=== PATIENT | male | born 1985 | race Caucasian/White ===

== ENCOUNTER 2017-12-15 07:42 | Inpatient (IN) | payer OTHER ==
[~2017-12-15] VITALS: Ht 179.1 cm; Wt 70.3 kg
[2017-12-15] MEDS ORDERED: LOPERAMIDE HCL 2 MG CAPSULE PO PRN ×2 (14:00)
[2017-12-15] MEDS ORDERED: MIRALAX 17 GM POWD.PACK PO PRN (14:00)
[2017-12-15] MEDS ORDERED: ONDANSETRON ODT 4 MG TAB.RAPDIS SL PRN (14:00)
[2017-12-15] MEDS ORDERED: DICYCLOMINE HCL 20 MG TABLET PO PRN (14:00)
[2017-12-15] MEDS ORDERED: LORAZEPAM 2 MG/1 ML VIAL IM PRN (14:00)
[2017-12-15] MEDS ORDERED: NICOTINE 14 MG/24HR PATCH TD PRN (14:00)
[2017-12-15] MEDS ORDERED: ONDANSETRON 4 MG/2 ML VIAL IM PRN (14:00)
[2017-12-15] MEDS ORDERED: THIAMINE HCL 200 MG/2 ML VIAL IM ONE (15:00)
[2017-12-15 15:42] LABS: BASOPHILS # (AUTO) 0.1 K/uL (0.0-8.0); BASOPHILS % (AUTO) 1.2 % (0.0-2.0); EOSINOPHILS # (AUTO) 0.1 K/uL (0.0-0.7); EOSINOPHILS % (AUTO) 0.6 % (0.0-7.0); HEMATOCRIT 46.7 % (36.7-47.1); HEMOGLOBIN 15.7 g/dL (12.5-16.3); LYMPHOCYTES # (AUTO) 1.6 K/uL (20.0-40.0); LYMPHOCYTES % (AUTO) 16.8 % (20.5-51.5); MEAN CORPUSCULAR HEMOGLOBIN 28.5 uug (23.8-33.4); MEAN CORPUSCULAR HGB CONC 34 g/dL (32.5-36.3); MEAN CORPUSCULAR VOLUME 84.6 fL (73.0-96.2); MONOCYTES # (AUTO) 0.6 K/uL (2.0-10.0); MONOCYTES % (AUTO) 6.5 % (0.0-11.0); NEUTROPHILS % (AUTO) 74.9 % (38.5-71.5); PLATELET COUNT (AUTO) 250 K/uL (152-348); RED BLOOD CELL COUNT(AUTO) 5.52 MIL/uL (4.06-5.63); WHITE BLOOD COUNT (AUTO) 9.3 K/uL (3.6-10.2)
[2017-12-15 15:45] LABS: ALANINE AMINOTRANSFERASE 65 U/L (16-63); ALKALINE PHOSPHATASE 122 U/L (50-136); AMYLASE 84 U/L (25-115); ASPARTATE AMINOTRANSFERASE 43 U/L (15-37); BILIRUBIN,TOTAL 0.9 mg/dL (0.2-1.0); CARBON DIOXIDE 25 mmol/L (21-32); CHLORIDE 98 mmol/L (98-107); CREATININE 1.3 mg/dL (0.6-1.3); GLUCOSE 137 mg/dL (74-106); LIPASE 174 U/L (73-393); MAGNESIUM 2.1 mg/dL (1.8-2.4); POTASSIUM 4.1 mmol/L (3.5-5.1); TOTAL PROTEIN, SERUM 8.5 g/dL (6.4-8.2); UREA NITROGEN, BLOOD 16 mg/dL (7-18)
[2017-12-15 15:49] LABS: ETHANOL < 3 MG/DL (0-0)
[2017-12-15 15:50] LABS: *AMPHETAMINE, URINE NEGATIVE (NEGATIVE); *BARBITURATE, URINE NEGATIVE (NEGATIVE); *CANNABINOID, URINE NEGATIVE (NEGATIVE); *COCCAINE, URINE NEGATIVE (NEGATIVE); *OPIATE, URINE NEGATIVE (NEGATIVE); *PHENCYCLIDINE SCREEN,URINE NEGATIVE (NEGATIVE)
[2017-12-15] MEDS ORDERED: SILD100T PO (15:51)
[2017-12-15] MEDS: CLONIDINE HCL 0.1 MG TABLET PO PRN (16:19)
[2017-12-15] MEDS: LORAZEPAM 1 MG TABLET PO SCH ×2 (16:19→20:30)
[2017-12-15 16:30] VITALS: BP 146/96
[2017-12-15] MEDS: NICOTINE POLACRILEX 4 MG GUM-PK OF TEN BC PRN ×2 (17:20→20:30)
[2017-12-15] MEDS: LORAZEPAM 1 MG TABLET PO PRN (17:49)
[2017-12-15 20:00] VITALS: BP 132/75
[2017-12-15] MEDS: IBUPROFEN 400 MG TABLET PO PRN (20:34)
[2017-12-15] MEDS: diphenhydrAMINE 50 MG CAPSULE PO PRN (21:49)
[2017-12-16] VITALS: BP 100/58
[2017-12-16] MEDS: MAG HYDROX/AL HYDROX/SIMETH 30 ML LIQUID UDC PO PRN ×2 (02:39→23:23)
[2017-12-16] MEDS: ACETAMINOPHEN 325 MG TABLET PO PRN (02:42)
[2017-12-16] MEDS: LORAZEPAM 1 MG TABLET PO PRN ×3 (03:16→22:23)
[2017-12-16 03:20] VITALS: BP 139/96
[2017-12-16] MEDS: NICOTINE POLACRILEX 4 MG GUM-PK OF TEN BC PRN ×3 (03:29→22:30)
[2017-12-16 08:15] VITALS: BP 133/94
[2017-12-16] MEDS: LORAZEPAM 1 MG TABLET PO SCH ×3 (08:18→20:11)
[2017-12-16] MEDS: THIAMINE HCL 100 MG TABLET PO SCH (08:18)
[2017-12-16] MEDS: IBUPROFEN 400 MG TABLET PO PRN (08:18)
[2017-12-16] MEDS: MULTIVITAMINS,THERAPEUTIC TABLET PO SCH (08:18)
[2017-12-16] MEDS: FOLIC ACID 1 MG TABLET PO SCH (08:18)
[2017-12-16] MEDS ORDERED: TUBERCULIN,PURIF.PROT.DERIV. 5 TU/0.1 ML TEST ID ONE (09:00)
[2017-12-16 12:09] VITALS: BP 131/88
[2017-12-16] MEDS ORDERED: GABAPENTIN 300 MG CAPSULE PO SCH (13:00)
[2017-12-16 13:17] LABS: HEPATITIS B SURFACE AG Negative (Negative)
[2017-12-16 16:42] VITALS: BP 143/79
[2017-12-16 20:00] VITALS: BP 147/97
[2017-12-16] MEDS: GABAPENTIN 300 MG CAPSULE PO SCH (20:11)
[2017-12-16] MEDS ORDERED: PRAZOSIN HCL 1 MG CAPSULE PO SCH (21:00)
[2017-12-16] MEDS: diphenhydrAMINE 50 MG CAPSULE PO PRN (22:23)
[2017-12-17] VITALS: BP 138/76
[2017-12-17] MEDS: IBUPROFEN 400 MG TABLET PO PRN (00:56)
[2017-12-17] MEDS: LORAZEPAM 1 MG TABLET PO PRN ×2 (02:29→04:55)
[2017-12-17 04:00] VITALS: BP 128/95
[2017-12-17] MEDS: MAG HYDROX/AL HYDROX/SIMETH 30 ML LIQUID UDC PO PRN (04:55)
[2017-12-17] MEDS: NICOTINE POLACRILEX 4 MG GUM-PK OF TEN BC PRN ×2 (05:34→18:45)
[2017-12-17 08:49] VITALS: BP 113/79
[2017-12-17] MEDS: THIAMINE HCL 100 MG TABLET PO SCH (08:51)
[2017-12-17] MEDS: GABAPENTIN 300 MG CAPSULE PO SCH ×3 (08:51→20:52)
[2017-12-17] MEDS: MULTIVITAMINS,THERAPEUTIC TABLET PO SCH (08:51)
[2017-12-17] MEDS: FOLIC ACID 1 MG TABLET PO SCH (08:51)
[2017-12-17] MEDS ORDERED: PNEUMOCOCCAL 23-VAL P-SAC VAC 0.5 ML VIAL IM ONE (09:00)
[2017-12-17] MEDS ORDERED: INFLUENZA VACCINE 2017-2018 0.5 ML DISP.SYRIN IM ONE (09:00)
[2017-12-17] MEDS ORDERED: LORAZEPAM 1 MG TABLET PO SCH ×2 (09:00→21:00)
[2017-12-17] MEDS ORDERED: CLONIDINE HCL 0.1 MG TABLET PO SCH (12:00)
[2017-12-17] MEDS: LORAZEPAM 1 MG TABLET PO SCH ×2 (12:07→17:15)
[2017-12-17 12:08] VITALS: BP 153/100
[2017-12-17 16:58] VITALS: BP 144/92
[2017-12-17 20:00] VITALS: BP 137/98
[2017-12-17] MEDS: CLONIDINE HCL 0.1 MG TABLET PO SCH (20:52)
[2017-12-17] MEDS ORDERED: TRAZODONE 100 MG TABLET PO SCH (21:00)
[2017-12-17] MEDS ORDERED: TRAZODONE 50 MG TABLET PO PRN (21:00)
[2017-12-17] MEDS: CLONIDINE HCL 0.1 MG TABLET PO PRN (22:29)
[2017-12-17] MEDS: diphenhydrAMINE 50 MG CAPSULE PO PRN (22:30)
[2017-12-18 04:00] VITALS: BP 138/86
[2017-12-18] MEDS: CLONIDINE HCL 0.1 MG TABLET PO PRN ×2 (05:54→12:58)
[2017-12-18 08:00] VITALS: BP 107/74
[2017-12-18] MEDS: GABAPENTIN 300 MG CAPSULE PO SCH ×2 (08:43→14:17)
[2017-12-18] MEDS: MULTIVITAMINS,THERAPEUTIC TABLET PO SCH (08:43)
[2017-12-18] MEDS: FOLIC ACID 1 MG TABLET PO SCH (08:43)
[2017-12-18] MEDS: FAMOTIDINE 20 MG TABLET PO SCH (08:43)
[2017-12-18] MEDS: THIAMINE HCL 100 MG TABLET PO SCH (08:43)
[2017-12-18] MEDS ORDERED: LORAZEPAM 1 MG TABLET PO SCH ×3 (09:00→21:00)
[2017-12-18] MEDS: NICOTINE POLACRILEX 4 MG GUM-PK OF TEN BC PRN (10:02)
[2017-12-18 12:00] VITALS: BP 132/85
[2017-12-18 16:00] VITALS: BP 129/88
[2017-12-18 20:00] VITALS: BP 137/93
[2017-12-18] MEDS ORDERED: GABAPENTIN 300 MG CAPSULE PO SCH (21:00)
[2017-12-18] MEDS: QUETIAPINE FUMARATE 25 MG TABLET PO SCH (21:33)
[2017-12-18] MEDS: CLONIDINE HCL 0.1 MG TABLET PO SCH (21:33)
[2017-12-19] VITALS: BP 117/75
[2017-12-19] MEDS: NICOTINE POLACRILEX 4 MG GUM-PK OF TEN BC PRN ×5 (01:36→21:39)
[2017-12-19 08:00] VITALS: BP 119/82
[2017-12-19] MEDS: GABAPENTIN 300 MG CAPSULE PO SCH ×3 (08:38→20:53)
[2017-12-19] MEDS: FAMOTIDINE 20 MG TABLET PO SCH (08:38)
[2017-12-19] MEDS: LORAZEPAM 1 MG TABLET PO SCH ×2 (08:38→20:52)
[2017-12-19] MEDS: MULTIVITAMINS,THERAPEUTIC TABLET PO SCH (08:38)
[2017-12-19] MEDS: FOLIC ACID 1 MG TABLET PO SCH (08:38)
[2017-12-19] MEDS: THIAMINE HCL 100 MG TABLET PO SCH (08:38)
[2017-12-19] MEDS ORDERED: LORAZEPAM 1 MG TABLET PO ONE (10:45)
[2017-12-19 12:00] VITALS: BP 147/96
[2017-12-19] MEDS: CLONIDINE HCL 0.1 MG TABLET PO PRN (12:28)
[2017-12-19 16:00] VITALS: BP 131/87
[2017-12-19 20:00] VITALS: BP 147/82
[2017-12-19] MEDS: QUETIAPINE FUMARATE 25 MG TABLET PO SCH (20:52)
[2017-12-19] MEDS: CLONIDINE HCL 0.1 MG TABLET PO SCH (20:53)
[2017-12-20] VITALS: BP 104/70
[2017-12-20] MEDS: CLONIDINE HCL 0.1 MG TABLET PO PRN (02:00)
[2017-12-20] MEDS: HYDROXYZINE PAMOATE 25 MG CAPSULE PO PRN (02:00)
[2017-12-20 04:00] VITALS: BP 105/66
[2017-12-20 08:00] VITALS: BP 129/88
[2017-12-20] MEDS: MULTIVITAMINS,THERAPEUTIC TABLET PO SCH (08:32)
[2017-12-20] MEDS: GABAPENTIN 300 MG CAPSULE PO SCH ×3 (08:33→20:21)
[2017-12-20] MEDS: CLONIDINE HCL 0.1 MG TABLET PO SCH ×2 (08:33→20:21)
[2017-12-20] MEDS: FOLIC ACID 1 MG TABLET PO SCH (08:33)
[2017-12-20] MEDS: FAMOTIDINE 20 MG TABLET PO SCH (08:33)
[2017-12-20] MEDS: THIAMINE HCL 100 MG TABLET PO SCH (08:33)
[2017-12-20] MEDS ORDERED: LORAZEPAM 1 MG TABLET PO SCH (09:00)
[2017-12-20] MEDS: NICOTINE POLACRILEX 4 MG GUM-PK OF TEN BC PRN ×2 (10:59→15:24)
[2017-12-20 12:00] VITALS: BP 131/90
[2017-12-20 16:00] VITALS: BP 136/93
[2017-12-20] MEDS ORDERED: GABA-534 PO (19:36)
[2017-12-20] MEDS ORDERED: FAMO20TA8 PO (19:36)
[2017-12-20] MEDS ORDERED: CLON0.1T14 PO (19:36)
[2017-12-20] MEDS ORDERED: HYDR-3895 PO (19:36)
[2017-12-20] MEDS ORDERED: QUET25TA PO (19:36)
[2017-12-20] MEDS ORDERED: DICY20TA28 PO (19:36)
[2017-12-20] MEDS ORDERED: DIPH50CA37 PO (19:36)
[2017-12-20 20:00] VITALS: BP 142/100
[2017-12-20] MEDS: QUETIAPINE FUMARATE 25 MG TABLET PO SCH (20:21)
[2017-12-21] VITALS: BP 139/88
[2017-12-21] MEDS: NICOTINE POLACRILEX 4 MG GUM-PK OF TEN BC PRN ×3 (01:47→10:56)
[2017-12-21 04:00] VITALS: BP 130/81
[2017-12-21] MEDS: IBUPROFEN 400 MG TABLET PO PRN (05:14)
[2017-12-21 08:00] VITALS: BP 130/90
[2017-12-21] MEDS: ACETAMINOPHEN 325 MG TABLET PO PRN (08:21)
[2017-12-21] MEDS: GABAPENTIN 300 MG CAPSULE PO SCH (08:21)
[2017-12-21 08:22] VITALS: BP 131/93
[2017-12-21] MEDS: HYDROXYZINE PAMOATE 25 MG CAPSULE PO PRN (08:22)
[2017-12-21] MEDS: THIAMINE HCL 100 MG TABLET PO SCH (08:22)
[2017-12-21] MEDS: FAMOTIDINE 20 MG TABLET PO SCH (08:22)
[2017-12-21] MEDS: FOLIC ACID 1 MG TABLET PO SCH (08:22)
[2017-12-21] MEDS: CLONIDINE HCL 0.1 MG TABLET PO SCH (08:22)
[2017-12-21] MEDS: MULTIVITAMINS,THERAPEUTIC TABLET PO SCH (08:22)
== END 2017-12-21 11:10 | disposition home or self-care (01) | DRG 895 ==
LOC: SRC 12:56
PROVIDERS: ADMIT Internal Medicine; ATTEND Internal Medicine
PROC: HZ2ZZZZ Detoxification Services for Substance Abuse Treatment (ICD-10-PCS; principal; 2017-12-15)
PROC: HZ41ZZZ Group Counseling for Substance Abuse Treatment, Behavioral (ICD-10-PCS; 2017-12-16)
PROC: HZ31ZZZ Individual Counseling for Substance Abuse Treatment, Behavioral (ICD-10-PCS; 2017-12-18)
DX: F10.230 Alcohol dependence with withdrawal, uncomplicated (principal); Z86.74 Personal history of sudden cardiac arrest; I15.9 Secondary hypertension, unspecified; K70.10 Alcoholic hepatitis without ascites; F17.210 Nicotine dependence, cigarettes, uncomplicated; Y90.0 Blood alcohol level of less than 20 mg/100 ml; Z91.89 Other specified personal risk factors, not elsewhere classified; G47.33 Obstructive sleep apnea (adult) (pediatric); F12.10 Cannabis abuse, uncomplicated; F41.9 Anxiety disorder, unspecified; Z81.1 Family history of alcohol abuse and dependence; Z83.3 Family history of diabetes mellitus; E11.9 Type 2 diabetes mellitus without complications; F32.9 Major depressive disorder, single episode, unspecified; F13.10 Sedative, hypnotic or anxiolytic abuse, uncomplicated; G47.50 Parasomnia, unspecified
CPT/HCPCS: 36415; 70030-TC; 80307; 80346; 83690; 83735; 85025; 86580; 86592; 86705; 86803; 87340; 87806; 90686; 90732; G0480; J3411; Q0163

== ENCOUNTER 2018-09-07 09:29 | Inpatient (IN) | payer OTHER ==
[~2018-09-07] VITALS: Ht 177.8 cm; Wt 70.3 kg
[~2018-09-07 09:29] MED LIST: CLON0.1T14 PO; DICY20TA28 PO; DIPH50CA37 PO; FAMO20TA8 PO; GABA-534 PO; HYDR-3895 PO; QUET25TA PO
--- NOTE | 2018-09-07 11:06 | NUR ---
ADMISSION Patient arrived on the unit at 1106 intoxicated, oriented to unit and to room, education regarding call light use provided with good verbal understanding. Patients BP: 132/90 hr: 122 rr: 18 t: 97.8 pulse ox: 99% room air. Patient appears intoxicated, has slurred speech and breath smells of alcohol. Patient appears disheveled. Noted irritable, angry and anxious. Noted with labile mood and anxious affect. Patient is fidgety and defensive. Noted guarded and angry. No withdrawal symptoms noted as patient last consumed 180ml of vodka at 0900 on 09/07/2018. Patient reports he relapsed 5 days ago. Was sober for 10-12 months prior to relapse. Patient admitted to [facility], with admitting Dx: Etoh Withdrawal. SUBSTANCE USE/HISTORY 1.Etoh- 375 ml of vodka, along with 12 (12oz) cans of [employer]ors light beers, daily for 5 days. Last drink: 09/07/2018 at 0900. Reports began drinking alcohol at the age of 15-16 years old. Relapsed 5 days ago, was sober for 10-12 months prior to relapse. Typical withdrawal include: " vomiting, nausea, feelings sick, sweats, tremors, and headaches". CONSEQUENCES OF SUBSTANCE ABUSE: Patient denies any history of seizure, denies any withdrawal induced delirium, and denies withdrawal induced cardiac complications, at time of assessment, but as previous MD notes, patient was at [facility] in December 2017, as per MD History & Physical completed by Dr. Alejandro Puri at that time, MD reported, The patient reports a history of withdrawal-induced delirium and withdraw-induced cardiac arrest leading to aspiration and requiring cardiopulmonary resuscitation, He also reports a history of accidental intoxication induced overdoses. Patient does report positive history of blackouts, reporting he is told by friends and family of doing things and patient cannot recall also verbalized I lose things, I send out text messages and make phone calls and have conversations with people, and in the morning I do not recall doing that MEDICAL/PSYCHIATRIC CONDITIONS: Patient reports being diagnosed with diabetes type 2, 7 or 8 years ago, denies taking any medications for diabetes. Also as per previous admission on December 2017 Dr. Alejandro Puri, reports past medical history of: Obstructive sleep apnea, History of alcohol induced pancreatitis, Anxiety disorder, unspecified, Depressive disorder, unspecified (previously on oral antidepressant; not at present), and Chronic tobacco use, with past surgical history of:. Uvulopalatopharyngoplasty and Dental/Oral surgery, unspecified Patient unable to provide name of primary care physician. Denies any involuntary psych hospitalization (5150) Denies any history of SI/HI. TREATMENT HISTORY Patient reports has been to about seven different treatment centers, but is unable to recall the names of them at this time. Was at [facility] in December 2017. MOTIVATION Patient verbalized, I began drinking in the very beginning because its what the adults did, and now I drink to lighten up, I was able to drink heavily for a very long time and stopping without a problem, but during stressful times the alcohol became a problem and it was difficult to stop reports he decided to come into treatment today, because, I decided to get sober today, because I want to live, because I cant keep doing this to myself, I need to live Reports, When I try to stop on my own I feel very sick and end up having very bad cravings, so I get drunk again so I dont have to feel sick Reports triggers include, Anything in life that is difficult or stressful I always turn to alcohol, and then find it difficult to stop drinking, I dont know how to stop Verbalized support system is, My support system is my kids and my family Patient reports alcohol has impacted his life in a negative way, by: drinking has affected my life in a bad way because, I cant drive, I continue going to rehabs over and over again, it has affected my relationship with my six children, and Im currently with my second , which it has also taken a bad impact on our relationship. I am unhappy with my alcoholism, the fact that I hate feeling sad, and I just want to drown that feeling by drinking alcohol Patient seen and examined by Dr. Khan, psychiatrist was notified of new admission. Will continue to monitor patient closely. Fall and seizure precautions are in place. Safety measures in place. Call light with in reach, will continue to monitor.
[2018-09-07 12:11] VITALS: BP 132/90
[2018-09-07 14:19] LABS: *AMPHETAMINE, URINE NEGATIVE (NEGATIVE); *BARBITURATE, URINE NEGATIVE (NEGATIVE); *CANNABINOID, URINE POSITIVE (NEGATIVE); *COCCAINE, URINE NEGATIVE (NEGATIVE); *OPIATE, URINE NEGATIVE (NEGATIVE); *PHENCYCLIDINE SCREEN,URINE NEGATIVE (NEGATIVE)
--- NOTE | 2018-09-07 14:23 | NUR ---
UDS + CANNABINOIDS Urine drug screen positive for cannabinoids, as per patient he last used approximately 8 days ago, and used very small amount, patient unable to report what the amount was, reports he smokes marijuana on/off.
[2018-09-07] MEDS ORDERED: LORAZEPAM 1 MG TABLET PO PRN (14:30)
[2018-09-07] MEDS ORDERED: ONDANSETRON 4 MG/2 ML VIAL IM PRN (14:30)
[2018-09-07] MEDS ORDERED: ONDANSETRON ODT 4 MG TAB.RAPDIS SL PRN (14:30)
[2018-09-07] MEDS ORDERED: THIAMINE HCL 200 MG/2 ML VIAL IM ONE (14:30)
[2018-09-07] MEDS ORDERED: IBUPROFEN 600 MG TABLET PO PRN (14:30)
[2018-09-07] MEDS ORDERED: LORAZEPAM 2 MG/1 ML VIAL IM PRN (14:30)
[2018-09-07] MEDS ORDERED: LOPERAMIDE HCL 2 MG CAPSULE PO PRN ×2 (14:30)
[2018-09-07] MEDS ORDERED: 5 DAY TAPER OF LORAZEPAM -SERENITY PROTOCOL PO PRN (14:30)
[2018-09-07] MEDS: LORAZEPAM 1 MG TABLET PO SCH ×3 (14:46→20:36)
[2018-09-07 14:47] LABS: EOSINOPHILS % (AUTO) 0.4 % (0.0-7.0); MONOCYTES # (AUTO) 0.4 K/uL (2.0-10.0)
[2018-09-07 14:52] LABS: BASOPHILS # (AUTO) 0.1 K/uL (0.0-8.0); BASOPHILS % (AUTO) 1.4 % (0.0-2.0); HEMATOCRIT 44.9 % (36.7-47.1); HEMOGLOBIN 15.5 g/dL (12.5-16.3); LYMPHOCYTES # (AUTO) 1.8 K/uL (20.0-40.0); LYMPHOCYTES % (AUTO) 22.3 % (20.5-51.5); MEAN CORPUSCULAR HEMOGLOBIN 30.3 uug (23.8-33.4); MEAN CORPUSCULAR HGB CONC 35 g/dL (32.5-36.3); MEAN CORPUSCULAR VOLUME 87.8 fL (73.0-96.2); MONOCYTES % (AUTO) 5.6 % (0.0-11.0); NEUTROPHILS # (AUTO) 5.6 K/uL (1.8-8.9); NEUTROPHILS % (AUTO) 70.3 % (38.5-71.5); PLATELET COUNT (AUTO) 312 K/uL (152-348); RED BLOOD CELL COUNT(AUTO) 5.11 MIL/uL (4.06-5.63)
[2018-09-07 15:01] LABS: BILIRUBIN,TOTAL 0.4 mg/dL (0.2-1.0); CREATININE 1.2 mg/dL (0.6-1.3); MAGNESIUM 1.9 mg/dL (1.8-2.4); POTASSIUM 4.2 mmol/L (3.5-5.1); TOTAL PROTEIN, SERUM 8.1 g/dL (6.4-8.2)
[2018-09-07 15:12] LABS: THYROID STIMULATING HORMONE 0.292 mIU/mL (0.358-3.740)
[2018-09-07] MEDS: CLONIDINE HCL 0.1 MG TABLET PO PRN ×2 (16:49→23:59)
[2018-09-07] MEDS: HYDROXYZINE PAMOATE 25 MG CAPSULE PO PRN ×2 (16:50→23:58)
[2018-09-07 16:52] VITALS: BP 140/96
--- NOTE | 2018-09-07 16:56 | NUR ---
CIWA ASSESSMENT PRN CLONIDINE/VISTARIL Patient with increase anxiety, agitation, restless, fidgety, pacing and wringing hands and elevated heart rate. patient with current CIWA score of: 12. Heart rate of: 140. Patient denies any chest pain/chest discomfort or dizziness. Will monitor effectiveness of medication. Scheduled Ativan taper to be administered as ordered.
--- NOTE | 2018-09-07 17:56 | NUR ---
VISTARIL/CLONIDINE REASSESSMENT Medication ineffective, continues to exhibit increase in anxiety, heart rate continues elevated at 142 BPM, denies palpitations, denies chest pain, denies chest discomfort. Per patient feels very stressed and anxious from being in detox, that his baseline heart rate is in the 120s, encouraged patient smoking cessation due to elevated heart rate and encouraged to increase PO fluid intake as tolerated. Notified Dr. Khan, per MD hernandez to administer an additional dose of PRN ativan 1 mg. Noted patient pacing in hallways and restless.
[2018-09-07] MEDS: LORAZEPAM 1 MG TABLET PO PRN (18:10)
--- NOTE | 2018-09-07 18:10 | NUR ---
PRN ATIVAN Patient with current ciwa score of: 12, noted with increase anxiety and agitation, noted fidgety, pacing in hallways and restless, provided patient with non pharmacological interventions and calming reassurance with no relief, as per Dr. Khan orders patient to be administered Ativan 1 mg PO for s/sx of withdrawal, with CIWA score of: 12. Current HR: 138. will continue to monitor. continues to denies any palpitations, chest pain, or chest discomfort. Will continue to monitor. Will endorse to shift production supervisor nurse, to reassess medication.
[2018-09-07 18:56] VITALS: BP 132/89
--- NOTE | 2018-09-07 19:00 | NUR ---
Start of Shift Received 33 year old male patient admitted 09/07/18 to [facility] for medically supervised withdrawal from ETOH. Pt started on a 3 day Ativan taper today 09/07/18, will monitor tolerance. Pt was given PRN Clonidine, Vistaril, and Ativan on day shift. Last CIWA 12 @ 1600. Pt is awake, alert, and oriented. Pt is anxious, agitated, mildly sweating, unable to sit still and pacing. BP 130/93, HR 120, Glucose 160, which pt denies adverse effect. Medications given per orders, will continue to monitor. Reported that MD is aware of glucose and no orders received. Pt consuming juice, educated pt on diabetes, blood sugar, and diet. Pt aware, verbalizes understanding and agrees to drink H2O in place of juice. Will continue to monitor.
--- NOTE | 2018-09-07 19:10 | NUR ---
Reassess PRN Ativan Pt continues with anxiety and agitation. CIWA 12
--- NOTE | 2018-09-07 19:16 | NUR ---
END OF SHIFT Patient admitted today during shift, was started on a 3 day Ativan taper as ordered. Patient received first dose during shift as ordered. Patient with increase anxiety, agitation, restless, fidgety, pacing and wringing hands during shift. Received PRN: clonidine, Ativan, and Vistaril during shift. Provided with non pharmacological interventions as needed. Encouraged utilization of non pharmacological interventions as needed. Patient encouraged to increase PO fluid intake as tolerated. Safety measures are in place. Call light kept with in reach, will continue to monitor.
--- NOTE | 2018-09-07 20:00 | NUR ---
CIWA 12 Pt is anxious, agitated, unable to sit still, and pacing
[2018-09-07 20:02] VITALS: BP 130/93
[2018-09-07] MEDS: diphenhydrAMINE 50 MG CAPSULE PO PRN (20:36)
--- NOTE | 2018-09-07 20:36 | NUR ---
PRN Benadryl Pt requested medication to help get some rest. Benadryl given per order. Will monitor effect.
--- NOTE | 2018-09-07 21:36 | NUR ---
Reassess PRN Benadryl Minimal effect. Pt continues to be anxious, agitated and pacing.
[2018-09-08] VITALS (7 sets, daily range): BP systolic 111–136; BP diastolic 69–95
--- NOTE | 2018-09-08 | NUR ---
CIWA 14 AND PRN Ativan/Clonidine/Vistaril Pt awakened with anxiety, agitation, mild sweating and itching. CIWA 14. BP 111/80 and HR 111. PRN Ativan, Clonidine, and Vistaril given per order. Will monitor effect.
--- NOTE | 2018-09-08 01:00 | NUR ---
Reassess PRN Ativan, Clonidine, and Vistaril Medication effective. Pt resting with eyes closed. Respirations even and unlabored. Continue to monitor.
--- NOTE | 2018-09-08 04:06 | NUR ---
CIWA deferred/ Vitals refused Pt resting with eyes closed. Respirations are even and unlabored. CIWA deferred and pt refused vitals. Continue to monitor.
[2018-09-08] MEDS: LORAZEPAM 1 MG TABLET PO PRN ×2 (05:42)
[2018-09-08] MEDS: HYDROXYZINE PAMOATE 25 MG CAPSULE PO PRN ×3 (05:42→22:47)
--- NOTE | 2018-09-08 05:42 | NUR ---
PRN Ativan/Clonidine/Vistaril Pt awakened with anxiety, agitation, mild sweating and itching. BP 118/70 and HR 97. PRN Ativan, Clonidine, and Vistaril given per order. Will monitor effect.
[2018-09-08] MEDS: CLONIDINE HCL 0.1 MG TABLET PO PRN ×4 (05:44→22:47)
--- NOTE | 2018-09-08 06:38 | NUR ---
Reassess PRN Ativan, Clonidine, and Vistaril Medication effective. Pt resting with eyes closed. Respirations even and unlabored. Continue to monitor
--- NOTE | 2018-09-08 06:45 | NUR ---
End of Shift Endorsing 33 year old male patient admitted 09/07/18 to [facility] for medically supervised withdrawal from ETOH. Pt currently on day 2 of a 3 day Ativan taper, which he is tolerating well. Pt was given PRN Benadryl, Ativan x 2, Clonidine x 2, and Vistaril x 2 on tube former operator. Last CIWA 14 @ 0000. BP 118/70 and HR 97 @ 0542. Pt is resting in bed with eyes closed. Respirations are even and unlabored. Bed low, side rails up x 2, and call fonseca in reach. PO intake 1355 ml, voided x 2, BM x 1, and slept 8 hours.
--- NOTE | 2018-09-08 07:29 | NUR ---
BEGINNING OF SHIFT Patient endorsement report received from steam hammer operator nurse, all pertinent information discussed. Patient with admitting Dx: etoh withdrawal, patient with ongoing 3 day Ativan taper as ordered, patient is scheduled to begin day 2 of taper. As per steam hammer operator report, patient continues with elevated heart rate, last heart rate of: 98, will continue to monitor. Received PRN: Benadryl, Vistaril x2, Clonidine x2, Ativan x2, last CIWA score of: 14. Slept for 8 hours. Patient received in bed with eyes closed, respirations are even and unlabored, safety measures are in place, will educate regarding plan of care for the day and medication regimen. Will continue to monitor.
[2018-09-08] MEDS: FOLIC ACID 1 MG TABLET PO SCH (08:42)
[2018-09-08] MEDS: MULTIVITAMINS,THERAPEUTIC TABLET PO SCH (08:42)
[2018-09-08] MEDS: THIAMINE HCL 100 MG TABLET PO SCH (08:42)
[2018-09-08] MEDS: LORAZEPAM 1 MG TABLET PO SCH ×2 (08:42→20:05)
--- NOTE | 2018-09-08 08:43 | NUR ---
PRN VISTARIL/CLONIDINE Patient verbalized feeling increase in anxiety, noted agitated and fidgety, noted with Hr: 96, BP: 136/95. Provided with calming reassurance and encouraged to express self along provided with non pharmacological interventions with no relief, administered Vistaril and Clonidine for anxiety/agitation. will monitor effectiveness of medication.
[2018-09-08] MEDS ORDERED: TUBERCULIN,PURIF.PROT.DERIV. 5 TU/0.1 ML TEST ID ONE (09:00)
--- NOTE | 2018-09-08 09:00 | NUR ---
CIWA ASSESSMENT Was noted exhibiting the following s/sx of withdrawal: anxiety, agitation, restless, fidgety, pacing and wringing hands, Current CIWA score of: 9
[2018-09-08 09:08] LABS: HEPATITIS B SURFACE AG Negative (Negative)
--- NOTE | 2018-09-08 09:43 | NUR ---
CLONIDINE/VISTARIL REASSESSMENT Medication effective, patient verbalized feeling less anxious, and less agitated, noted calm. BP: 128/85 HR: 95.
--- NOTE | 2018-09-08 13:00 | NUR ---
CIWA ASSESSMENT Continues to present with: anxiety, agitation, restless, fidgety, pacing and wringing hands, Current CIWA score of: 9
--- NOTE | 2018-09-08 14:15 | NUR ---
Therapist prompted client to attend group therapy.
--- NOTE | 2018-09-08 17:13 | NUR ---
CIWA ASSESSMENT/PRN CLONIDINE Was noted exhibiting the following s/sx of withdrawal: anxiety, agitation, restless, fidgety, pacing and wringing hands, last CIWA score of: 9. patient also noted exhibiting heart rate of: 130, denies chest pain/discomfort. no c/o dizziness, no SOB. MD was notified. Patient was administered Clonidine for anxiety as ordered, will monitor effectiveness of medication.
--- NOTE | 2018-09-08 17:30 | NUR ---
CIWA ASSESSMENT Still presenting with: anxiety, agitation, restless, fidgety, pacing and wringing hands, Current CIWA score of: 9
--- NOTE | 2018-09-08 18:13 | NUR ---
CLONIDINE REASSESSMENT Medication effective, patient verbalized feeling less anxious, and less agitated, noted calm. BP: 122/86 HR: 118
--- NOTE | 2018-09-08 18:54 | NUR ---
END OF SHIFT Patient alert and oriented x4, continues under close observation, patient continues with ongoing 3 day Ativan taper as ordered, patient currently on day 2 of taper, well tolerated. Appears disheveled and unkempt, encouraged to self groom, offered linen change and declined. Has a flat affect and anxious mood. Encourage to express self as needed and was provided with calming reassurance as needed. Encouraged utilization of non pharmacological interventions as needed. Was noted exhibiting the following s/sx of withdrawal: anxiety, agitation, restless, fidgety, pacing and wringing hands, last CIWA score of: 9. Received PRN: clonidine, and Vistaril during shift medications were effective, patient refused PPD, despite risk vs benefits of receiving, is afebrile, with no cough noted. Provided with non pharmacological interventions as needed. Encouraged utilization of non pharmacological interventions as needed. Patient encouraged to increase PO fluid intake as tolerated. Safety measures are in place. Call light kept with in reach, will continue to monitor.Patient endorsed to night court magistrate nurse, all pertinent information was discussed.
--- NOTE | 2018-09-08 19:00 | NUR ---
310 Start of Shift Received 33 year old male patient admitted 09/07/18 to [facility] for medically supervised withdrawal from ETOH. Pt currently on day 2 of a 3 day Ativan taper, which he is tolerating well. Pt was given PRN Clonidine and Vistaril on day shift. Last CIWA 9 @ 1600. Pt is awake, alert, and oriented in dark room isolating. Pt is anxious, agitated, unable to sit still and pacing. Bed is low, side rails up x 2, and call fonseca in reach. Will continue to monitor.
--- NOTE | 2018-09-08 20:00 | NUR ---
CIWA 11 Pt is anxious, agitated, unable to sit still, pacing, and very frequently wants to smoke.
[2018-09-08] MEDS: diphenhydrAMINE 50 MG CAPSULE PO PRN (20:06)
--- NOTE | 2018-09-08 20:06 | NUR ---
PRN Benadryl Pt states he is ready for bed and requesting something to help him sleep. Benadryl given per order. Will monitor effect.
--- NOTE | 2018-09-08 21:02 | NUR ---
Reassess PRN Benadryl Pt awake in bed. will continue to monitor.
--- NOTE | 2018-09-08 22:47 | NUR ---
PRN Clonidine/Vistaril Pt awake anxious, agitated, requesting cigarettes and chewing tobacco. BP 134/103 and HR 131. PRN Clonidine and Vistaril given per order. Pt made aware that the chewing tobacco request will be addressed in the am. Pt verbalizes understanding.
--- NOTE | 2018-09-08 23:47 | NUR ---
Reassess PRN Clonidine/Vistaril Medication effective. Pt resting with eyes closed. Respirations even and unlabored. Continue to monitor.
--- NOTE | 2018-09-09 00:03 | NUR ---
CIWA deferred/ Vitals refused Pt resting with eyes closed. Respirations are even and unlabored. CIWA deferred and pt refused vitals. Continue to monitor.
--- NOTE | 2018-09-09 04:00 | NUR ---
CIWA deferred/ Vitals refused Pt resting with eyes closed. Respirations are even and unlabored. CIWA deferred and pt refused vitals. Continue to monitor.
[2018-09-09] MEDS: HYDROXYZINE PAMOATE 25 MG CAPSULE PO PRN ×3 (05:07→19:41)
[2018-09-09] MEDS: CLONIDINE HCL 0.1 MG TABLET PO PRN ×3 (05:07→19:41)
--- NOTE | 2018-09-09 05:07 | NUR ---
PRN Clondine/Vistaril Pt awake anxious, agitated, pacing, and asking for nicotine patch/chewing tobacco/melatonin. Pt informed that these will be addressed during day shift. Pt agreed. BP 129/92 HR 99 Clonidine and Vistaril given per order. Will monitor effect.
--- NOTE | 2018-09-09 06:36 | NUR ---
End of Shift Endorsing 33 year old male patient admitted 09/07/18 to [facility] for medically supervised withdrawal from ETOH. Pt currently on day 3 of a 3 day Ativan taper, which he is tolerating well. Pt was given PRN Benadryl, Clonidine x 2, and Vistaril x 2 on funeral service licensee. Last CIWA 11 @1999. Pt is resting with eyes closed. Respirations are even and unlabored. Bed is low, side rails up x 2, and call fonseca in reach. PO intake 500 ml, voided x5, BM x 0, and slept x 7 hours. Fasting Glucose, Free T4, and TSH ordered for this am 09/09/18. Pt requesting chewing tobacco, nicotine patch, and Melatonin.
[2018-09-09 07:02] LABS: THYROID STIMULATING HORMONE 1.169 mIU/mL (0.358-3.740)
[2018-09-09 08:00] VITALS: BP 143/95
--- NOTE | 2018-09-09 08:05 | NUR ---
START OF SHIFT: Received pt A/O X 4. He presents with anxious mood and congruent affect. He reports anxiety,restlessness,racing thoughts and irritability. CIWA 10 Ativan taper in progress to manage symptoms. Encouraged expression of feelings and group attendance. Educated him on deep breathing exercises assist in relieving anxiety. Will continue to monitor and offer support.
[2018-09-09] MEDS: THIAMINE HCL 100 MG TABLET PO SCH (08:49)
[2018-09-09] MEDS: MULTIVITAMINS,THERAPEUTIC TABLET PO SCH (08:49)
[2018-09-09] MEDS: FOLIC ACID 1 MG TABLET PO SCH (08:50)
[2018-09-09] MEDS ORDERED: LORAZEPAM 1 MG TABLET PO SCH (09:00)
--- NOTE | 2018-09-09 09:02 | NUR ---
Therapist prompted client to attend all group therapy sessions.
[2018-09-09 12:00] VITALS: BP 137/98
--- NOTE | 2018-09-09 12:20 | NUR ---
CIWA 6 He reports anxiety,restlessness and racing thoughts. PRN Vistaril and PRN clonidine given to manage symptoms. Will monitor effectiveness.
[2018-09-09] MEDS ORDERED: HYDR-3895 PO (12:22)
[2018-09-09] MEDS ORDERED: CLON0.1T14 PO (12:22)
[2018-09-09] MEDS ORDERED: DIPH50CA37 PO (12:22)
--- NOTE | 2018-09-09 13:20 | NUR ---
Pt states he feels a little bit less anxious. PRN meds mildly effective. Will continue to monitor and offer support.
[2018-09-09 16:00] VITALS: BP 148/94
--- NOTE | 2018-09-09 18:48 | NUR ---
END OF SHIFT: Pt completed modified Ativan taper to manage s/s of w/d which include anxiety,racing thoughts and restlessness. Last CIWA 8. PRN Clonidine and Vistaril given and mildly effective. He attended groups and interacted with peers. He is scheduled for discharge in am tomorrow to RTC.He verbalized enthusiasm toward recovery despite his anxiety. Will pass shift report to oncoming night nurse.
--- NOTE | 2018-09-09 19:10 | NUR ---
Start of Shift Received 33 year old male patient admitted 09/07/18 to [facility] for medically supervised withdrawal from ETOH. Pt completed a 3 day Ativan taper today 09/09/18, which he tolerated well. Pt was given PRN Clonidine and Vistaril on day shift. Last CIWA 8 @ 1600. Pt is awake, alert, and oriented in dark room isolating. Pt is anxious, agitated, distracted, and hyper focused on making a phone call. Pt was redirected and will f/u with charge nurse. Bed is low, side rails up x 2, and call fonseca in reach. Planned discharge in am 09/10/18. Will continue to monitor.
--- NOTE | 2018-09-09 19:41 | NUR ---
PRN Clonidine and Vistaril Pt is anxious, agitated, and BP 142/94 HR 114. Medications given per order. Will monitor effect.
[2018-09-09 20:00] VITALS: BP 142/94
--- NOTE | 2018-09-09 20:00 | NUR ---
CIWA 8 Pt is anxious, agitated, and BP 142/94 HR 114
--- NOTE | 2018-09-09 20:41 | NUR ---
Reassess PRN Clonidine and Vistaril Medication effective. Pt made his phone and states he is less anxious. BP 132/88 HR 98. Will continue to monitor.
[2018-09-09] MEDS: diphenhydrAMINE 50 MG CAPSULE PO PRN (21:58)
--- NOTE | 2018-09-09 21:58 | NUR ---
PRN Benadryl Pt requested Benadryl for sleep. Medication given per order. Will monitor effect.
--- NOTE | 2018-09-09 22:50 | NUR ---
Reassess PRN Benadryl Pt awake lying quietly in room.
--- NOTE | 2018-09-10 | NUR ---
CIWA deferred/ Vitals refused Pt resting with eyes closed. Respirations are even and unlabored. CIWA deferred and pt refused vitals. Continue to monitor.
--- NOTE | 2018-09-10 04:03 | NUR ---
CIWA deferred/ Vitals refused Pt resting with eyes closed. Respirations are even and unlabored. CIWA deferred and pt refused vitals. Continue to monitor.
--- NOTE | 2018-09-10 06:46 | NUR ---
End of Shift Endorsing 33 year old male patient admitted 09/07/18 to [facility] for medically supervised withdrawal from ETOH. Pt was given PRN Clonidine, Vistaril, and Benadryl on chargemaster specialist. Last CIWA 8 @ 1999. PO intake 1710 ml, voided x 4, BM x 0, and slept 2 hours. Pt has been intermittently sleeping. Pt has been consuming DrKaushik Pepper and frequently smoking throughout shift. Bed is low, side rails up x 2, and call fonseca in reach. Planned discharge to [facility] today 09/10/18.
--- NOTE | 2018-09-10 07:40 | NUR ---
START OF SHIFT NOTE Received report from night nurse, 33 year old male admitted for ETOH withdrawal and completed his 3 days Ativan taper tolerated well. Per endorsement patient was given PRN Clonidine, Vistaril, Benadryl effective per night nurse, last CIWA score-8, and slept for 2 hours. Received patient alert awake oriented x4 in stable condition. Breathing normal no SOB noted. Skin intact warm and dry to touch. Patient reported mildly anxious and agitated, restless secondary to lack of sleep. Patient set for discharge today 09/10/18. All safety measures in place. Will cont with plan of care.
[2018-09-10 08:00] VITALS: BP 137/99
[2018-09-10] MEDS: MULTIVITAMINS,THERAPEUTIC TABLET PO SCH (08:04)
[2018-09-10] MEDS: THIAMINE HCL 100 MG TABLET PO SCH (08:04)
[2018-09-10] MEDS: FOLIC ACID 1 MG TABLET PO SCH (08:04)
[2018-09-10] MEDS: HYDROXYZINE PAMOATE 25 MG CAPSULE PO PRN (08:07)
--- NOTE | 2018-09-10 08:07 | NUR ---
PRN VISTARIL Patient c/o anxiety, agitation, restless. PRN Vistaril 50mg PO as ordered. Will cont to monitor.
--- NOTE | 2018-09-10 09:07 | NUR ---
VISTARIL REASSESSMENT Per patient Vistaril was effective in controlling his anxiety, agitation, restless.
--- NOTE | 2018-09-10 09:48 | NUR ---
DISCHARGE NOTE Patient is alert awake oriented discharge from [facility] in stable condition. Vital signs WNL. Skin intact warm and dry to touch. Patient denies any SI/HI. All discharge paper work completed signed and dated. All belongings returned to the patient including his home medication and prescriptions. Patient discharge from [facility] to "[facility]" in stable condition.
== END 2018-09-10 09:48 | disposition other institution (70) | DRG 895 ==
LOC: SRC 10:26
PROVIDERS: ADMIT Family Medicine Addiction Medicine; ATTEND Family Medicine Addiction Medicine
PROC: HZ2ZZZZ Detoxification Services for Substance Abuse Treatment (ICD-10-PCS; principal; 2018-09-07)
PROC: HZ31ZZZ Individual Counseling for Substance Abuse Treatment, Behavioral (ICD-10-PCS; 2018-09-08)
PROC: HZ41ZZZ Group Counseling for Substance Abuse Treatment, Behavioral (ICD-10-PCS; 2018-09-09)
DX: F10.231 Alcohol dependence with withdrawal delirium (principal); K85.20 Alcohol induced acute pancreatitis without necrosis or infection; Y90.6 Blood alcohol level of 120-199 mg/100 ml; E11.65 Type 2 diabetes mellitus with hyperglycemia; Z81.1 Family history of alcohol abuse and dependence; Z65.3 Problems related to other legal circumstances; G47.33 Obstructive sleep apnea (adult) (pediatric); F17.210 Nicotine dependence, cigarettes, uncomplicated; F41.1 Generalized anxiety disorder; Z83.3 Family history of diabetes mellitus; F32.9 Major depressive disorder, single episode, unspecified; F12.10 Cannabis abuse, uncomplicated
CPT/HCPCS: 36415; 70030-TC; 80307; 80349; 83690; 83735; 84443; 85025; 86592; 86705; 86803; 87340; 87806; G0480; J3411; Q0163